=== PATIENT | male | born 2000 | race Hispanic/Latino ===

== ENCOUNTER 2023-09-16 09:21 | Emergency (ER) | payer OTHER ==
[~2023-09-16] VITALS: Ht 170.2 cm; Wt 82.4 kg
[2023-09-16] MEDS ORDERED: HYDR50TA70 PO (11:51)
[2023-09-16] MEDS ORDERED: hydrOXYzine 50 MG TAB PO STA (11:52)
[2023-09-16 12:00] VITALS: BP 125/63; TEMP 99.4; O2SAT 97
== END 2023-09-16 12:17 | disposition home or self-care (01) ==
LOC: M ED 09:21
DX: F43.0 Acute stress reaction (principal); F51.01 Primary insomnia; F17.200 Nicotine dependence, unspecified, uncomplicated; F10.10 Alcohol abuse, uncomplicated; Z79.811 Long term (current) use of aromatase inhibitors